=== PATIENT | male | born 1990 | race Hispanic/Latino ===

== ENCOUNTER 2022-02-27 22:26 | Emergency (ER) | payer SELFPAY ==
[~2022-02-27] VITALS: Ht 170.2 cm; Wt 88.5 kg
[2022-02-27] MEDS ORDERED: XANAX1 MG PO (22:57)
== END 2022-02-27 23:35 | disposition home or self-care (01) ==
LOC: FSED 22:55
DX: F41.9 Anxiety disorder, unspecified (principal)
CPT/HCPCS: 99282